=== PATIENT | female | born 1970 | race Caucasian/White ===

== ENCOUNTER 2021-05-14 15:15 | Emergency (ER) | payer MEDICARE, MEDICAID ==
[~2021-05-14] VITALS: Ht 177.8 cm; Wt 73.6 kg
[~2021-05-14 15:15] MED LIST: ESOM40CA49 PO; HYDR-4353 PO; MELO-100 PO; NITR0.4T SL
[2021-05-14] MEDS ORDERED: CefTRIAXone 2gm/D5W 50ml BAG 50 ML IV ONE (16:00)
[2021-05-14] MEDS ORDERED: normal saline 1000ML IV soln IV ONE (16:00)
[2021-05-14 16:14] LABS: BASOPHILS % (AUTO) 0.1 % (0-1); LYMPHOCYTES # (AUTO) 0.9 X10'3 (1.1-4.8); MONOCYTES # (AUTO) 0.4 X10'3 (0-0.9); RED CELL DISTRIBUTION WIDTH 12.7 % (11.5-14.5); WHITE BLOOD COUNT 15.5 X10'3 (4.5-11.0)
[2021-05-14 16:16] LABS: EOSINOPHILS % (AUTO) 0.1 % (0-6); HEMATOCRIT 39.1 % (35.0-45.0); HEMOGLOBIN 13.5 g/dl (12.0-16.0); LYMPHOCYTES % (AUTO) 6.1 % (21-51); MEAN CORPUSCULAR HEMOGLOBIN 33.7 PG (27.0-31.0); MEAN CORPUSCULAR HGB CONC 34.5 g/dL (33.0-36.5); MEAN CORPUSCULAR VOLUME 97.6 FL (78-98); MEAN PLATELET VOLUME 8.1 FL (7.4-10.4); MONOCYTES % (AUTO) 2.9 % (2-12); NEUTROPHILS # (AUTO) 14.1 X10'3 (1.8-7.7); NEUTROPHILS % (AUTO) 90.8 % (42-75); PLATELET COUNT 235 X10'3 (140-440)
[2021-05-14 16:23] LABS: ALANINE AMINOTRANSFERASE 71 U/L (12-78); ALBUMIN 2.6 G/DL (3.4-5.0); ALBUMIN/GLOBULIN RATIO 0.6 (1.1-1.5); ALKALINE PHOSPHATASE 133 IU/L (46-116); ANION GAP 15 (8-16); ASPARTATE AMINO TRANSFERASE 34 U/L (10-37); BILIRUBIN,TOTAL 0.7 MG/DL (0.1-1.0); BLOOD UREA NITROGEN 13 MG/DL (7-18); BUN/CREATININE RATIO 10.2 (6.6-38.0); CALCIUM 8.6 MG/DL (8.5-10.1); CHLORIDE 98 MMOL/L (99-107); CREATININE 1.28 MG/DL (0.40-0.90); GLUCOSE 156 MG/DL (70-104); POTASSIUM 3.6 MMOL/L (3.5-5.1); SODIUM 133 MMOL/L (135-145); TOTAL CARBON DIOXIDE 20.2 MMOL/L (24-32); TOTAL PROTEIN 6.8 G/DL (6.4-8.2); eGFR 44 ML/MIN
[2021-05-14 16:37] LABS: CLARITY,URINE CLOUDY (Clear); COLOR,URINE YELLOW (Yellow); GLUCOSE, URINE NEGATIVE (Neg); KETONES,URINE NEGATIVE (Neg); LEUKOCYTE ESTERASE ,URINE MODERATE (Neg); NITRITES, URINE NEGATIVE (Neg); OCCULT BLOOD,URINE MODERATE (Neg); PROTEIN,URINE 30 mg/dl (Neg); UROBILINOGEN,URINE 0.2 E.U/dL (0.2-1.0)
[2021-05-14 16:56] LABS: UA COLLECTION TYPE CLN CATCH MIDSTREAM
[2021-05-14 17:10] LABS: BACTERIA,URINE 3+ /HPF (Neg); MUCUS STRANDS MODERATE /LPF (Neg); SQUAMOUS EPITHELIAL CELL,UR MODERATE /LPF (FEW); WBC,URINE TNTC /HPF (0-4)
[2021-05-14] MEDS ORDERED: CEFD300C3 PO (17:27)
--- NOTE | 2021-05-14 17:59 | NUR ---
notified the provider that pt vomited and requesting for nausea meds prescription.md given verbal orders for 4 mg zofran iv once.
[2021-05-14] MEDS ORDERED: ondansetron/PF 4mg/2ml inj IV ONE (18:00)
[2021-05-14] MEDS ORDERED: ZOF4I PO (18:05)
[2021-05-14 18:23] VITALS: BP 145/65
[2021-05-14] MEDS ORDERED: acetaminophen 325mg tablet PO ONE (18:25)
[2021-05-14 20:27] LABS: PLATELET ESTIMATE NORMAL; TOTAL CELLS COUNTED 100
[2021-05-14 20:28] LABS: LARGE PLATELETS FEW
[2021-05-15] MEDS ORDERED: ATOR20TA66 PO (17:36)
[2021-05-15] MEDS ORDERED: FENO145T25 PO (17:36)
[2021-05-15] MEDS ORDERED: CYCL-1 PO (17:36)
[2021-05-15] MEDS ORDERED: HYDR-3972 PO (17:36)
[2021-05-15] MEDS ORDERED: OMEP40CA21 PO (17:36)
[2021-05-15] MEDS ORDERED: CEFD300C21 PO (17:36)
== END 2021-05-14 18:44 | disposition home or self-care (01) ==
LOC: ER 15:16
DX: N12 Tubulo-interstitial nephritis, not specified as acute or chronic (principal); Z20.822 Contact with and (suspected) exposure to COVID-19; R50.9 Fever, unspecified; R05.9 Cough, unspecified; M54.50 Low back pain, unspecified; G89.29 Other chronic pain; F17.200 Nicotine dependence, unspecified, uncomplicated; Z88.5 Allergy status to narcotic agent; Z88.1 Allergy status to other antibiotic agents; Z88.8 Allergy status to other drugs, medicaments and biological substances; Z79.899 Other long term (current) drug therapy
CPT/HCPCS: 87077; 96365; 96366; 96375; 99284; J0696; J2405; J7030; 36415; 71045; 80053; 81001; 83605; 84145; 85007; 85025; 87040; 87088; 87186; 87635; C9803